=== PATIENT | male | born 1985 | race Caucasian/White ===

== ENCOUNTER → 2018-02-22 | Outpatient (CLI) | payer OTHER, BC | END | disposition home or self-care (01) | LOC: WOUND 13:16 | PROVIDERS: ATTEND Internal Medicine | DX: L89.153 Pressure ulcer of sacral region, stage 3 (principal); L89.43 Pressure ulcer of contiguous site of back, buttock and hip, stage 3; L89.320 Pressure ulcer of left buttock, unstageable; I10 Essential (primary) hypertension; E78.5 Hyperlipidemia, unspecified; G82.21 Paraplegia, complete | CPT/HCPCS: 11042; 99205 ==

== ENCOUNTER → 2018-02-27 | Outpatient (CLI) | payer OTHER, BC | END | disposition home or self-care (01) | LOC: WOUND 09:14 | PROVIDERS: ATTEND Internal Medicine | DX: L89.323 Pressure ulcer of left buttock, stage 3 (principal); G82.21 Paraplegia, complete; E78.5 Hyperlipidemia, unspecified; I10 Essential (primary) hypertension | CPT/HCPCS: 97597 ==

== ENCOUNTER → 2018-03-10 | Outpatient (CLI) | payer OTHER, BC | END | disposition home or self-care (01) | LOC: WOUND 08:38 | PROVIDERS: ATTEND Family Medicine | DX: L89.323 Pressure ulcer of left buttock, stage 3 (principal); G82.21 Paraplegia, complete; E78.5 Hyperlipidemia, unspecified; I10 Essential (primary) hypertension | CPT/HCPCS: 99214 ==

== ENCOUNTER → 2018-03-13 | Outpatient (CLI) | payer OTHER, BC | END | disposition home or self-care (01) | LOC: WOUND 11:03 | PROVIDERS: ATTEND Internal Medicine | DX: L89.43 Pressure ulcer of contiguous site of back, buttock and hip, stage 3 (principal); G82.21 Paraplegia, complete; E78.5 Hyperlipidemia, unspecified; I10 Essential (primary) hypertension | CPT/HCPCS: 97605 ==

== ENCOUNTER → 2018-03-15 | Outpatient (CLI) | payer OTHER, BC | END | disposition home or self-care (01) | LOC: WOUND 11:04 | PROVIDERS: ATTEND Internal Medicine | DX: L89.43 Pressure ulcer of contiguous site of back, buttock and hip, stage 3 (principal); G82.21 Paraplegia, complete; E78.5 Hyperlipidemia, unspecified; I10 Essential (primary) hypertension | CPT/HCPCS: 97605 ==

== ENCOUNTER → 2018-03-17 | Outpatient (CLI) | payer OTHER, BC | END | disposition home or self-care (01) | LOC: WOUND 10:00 | PROVIDERS: ATTEND Family Medicine | DX: L89.43 Pressure ulcer of contiguous site of back, buttock and hip, stage 3 (principal); I10 Essential (primary) hypertension; G82.21 Paraplegia, complete; E78.5 Hyperlipidemia, unspecified | CPT/HCPCS: 11043 ==

== ENCOUNTER → 2018-03-20 | Outpatient (CLI) | payer OTHER, BC | END | disposition home or self-care (01) | LOC: WOUND 09:43 | PROVIDERS: ATTEND Internal Medicine | DX: L89.153 Pressure ulcer of sacral region, stage 3 (principal); I10 Essential (primary) hypertension; G82.21 Paraplegia, complete; E78.5 Hyperlipidemia, unspecified | CPT/HCPCS: 97605 ==

== ENCOUNTER → 2018-03-22 | Outpatient (CLI) | payer OTHER, BC | END | disposition home or self-care (01) | LOC: WOUND 10:56 | PROVIDERS: ATTEND Internal Medicine Cardiovascular Disease | DX: L89.43 Pressure ulcer of contiguous site of back, buttock and hip, stage 3 (principal); G82.21 Paraplegia, complete; I10 Essential (primary) hypertension; E78.5 Hyperlipidemia, unspecified | CPT/HCPCS: 97605 ==

== ENCOUNTER → 2018-03-24 | Outpatient (CLI) | payer OTHER, BC | END | disposition home or self-care (01) | LOC: WOUND 09:30 | PROVIDERS: ATTEND Family Medicine | DX: L89.43 Pressure ulcer of contiguous site of back, buttock and hip, stage 3 (principal); G82.21 Paraplegia, complete; E78.5 Hyperlipidemia, unspecified; I10 Essential (primary) hypertension | CPT/HCPCS: 11043 ==

== ENCOUNTER → 2018-03-27 | Outpatient (CLI) | payer OTHER, BC | END | disposition home or self-care (01) | LOC: WOUND 08:31 | PROVIDERS: ATTEND Internal Medicine Cardiovascular Disease | DX: L89.43 Pressure ulcer of contiguous site of back, buttock and hip, stage 3 (principal); I10 Essential (primary) hypertension; G82.21 Paraplegia, complete; E78.5 Hyperlipidemia, unspecified | CPT/HCPCS: 97605 ==

== ENCOUNTER → 2018-03-29 | Outpatient (CLI) | payer OTHER, BC | END | disposition home or self-care (01) | LOC: WOUND 08:30 | PROVIDERS: ATTEND Internal Medicine | DX: L89.43 Pressure ulcer of contiguous site of back, buttock and hip, stage 3 (principal); G82.21 Paraplegia, complete; I10 Essential (primary) hypertension; E78.5 Hyperlipidemia, unspecified | CPT/HCPCS: 97605 ==

== ENCOUNTER → 2018-03-31 | Outpatient (CLI) | payer OTHER, BC | END | disposition home or self-care (01) | LOC: WOUND 10:36 | PROVIDERS: ATTEND Family Medicine | DX: L89.43 Pressure ulcer of contiguous site of back, buttock and hip, stage 3 (principal); G82.21 Paraplegia, complete; I10 Essential (primary) hypertension; E78.5 Hyperlipidemia, unspecified | CPT/HCPCS: 97605 ==

== ENCOUNTER → 2018-04-03 | Outpatient (CLI) | payer OTHER, BC | END | disposition home or self-care (01) | LOC: WOUND 08:32 | PROVIDERS: ATTEND Internal Medicine | DX: L89.43 Pressure ulcer of contiguous site of back, buttock and hip, stage 3 (principal); G82.21 Paraplegia, complete; E78.5 Hyperlipidemia, unspecified; I10 Essential (primary) hypertension | CPT/HCPCS: 97605 ==

== ENCOUNTER → 2018-04-05 | Outpatient (CLI) | payer OTHER, BC | END | disposition home or self-care (01) | LOC: WOUND 11:04 | PROVIDERS: ATTEND Internal Medicine | DX: L89.43 Pressure ulcer of contiguous site of back, buttock and hip, stage 3 (principal); G82.21 Paraplegia, complete; E78.5 Hyperlipidemia, unspecified; I10 Essential (primary) hypertension | CPT/HCPCS: 97597 ==

== ENCOUNTER → 2018-04-10 | Outpatient (CLI) | payer OTHER, BC | END | disposition home or self-care (01) | LOC: WOUND 08:10 | PROVIDERS: ATTEND Internal Medicine | DX: L89.43 Pressure ulcer of contiguous site of back, buttock and hip, stage 3 (principal); G82.21 Paraplegia, complete; E78.5 Hyperlipidemia, unspecified; I10 Essential (primary) hypertension | CPT/HCPCS: 97605 ==

== ENCOUNTER → 2018-04-12 | Outpatient (CLI) | payer OTHER, BC | END | disposition home or self-care (01) | LOC: WOUND 11:04 | PROVIDERS: ATTEND Internal Medicine | DX: L89.43 Pressure ulcer of contiguous site of back, buttock and hip, stage 3 (principal); I10 Essential (primary) hypertension; G82.21 Paraplegia, complete; E78.5 Hyperlipidemia, unspecified | CPT/HCPCS: 97597 ==

== ENCOUNTER → 2018-04-14 | Outpatient (CLI) | payer OTHER, BC ==
[~2018-04-14] MED LIST: ACET325T14 PO; LINE600T33 PO; METR500T PO
== END | disposition home or self-care (01) ==
LOC: WOUND 10:08
PROVIDERS: ATTEND Internal Medicine Cardiovascular Disease
DX: L89.43 Pressure ulcer of contiguous site of back, buttock and hip, stage 3 (principal); G82.21 Paraplegia, complete; E78.5 Hyperlipidemia, unspecified; I10 Essential (primary) hypertension
CPT/HCPCS: 97605

== ENCOUNTER → 2018-04-17 | Outpatient (CLI) | payer OTHER, BC | END | disposition home or self-care (01) | LOC: WOUND 13:18 | PROVIDERS: ATTEND Internal Medicine | DX: L89.43 Pressure ulcer of contiguous site of back, buttock and hip, stage 3 (principal); I10 Essential (primary) hypertension; G82.21 Paraplegia, complete; E78.5 Hyperlipidemia, unspecified | CPT/HCPCS: 97597 ==

== ENCOUNTER → 2018-04-19 | Outpatient (CLI) | payer OTHER, BC | END | disposition home or self-care (01) | LOC: WOUND 14:28 | PROVIDERS: ATTEND Internal Medicine Cardiovascular Disease | DX: L89.223 Pressure ulcer of left hip, stage 3 (principal); G82.21 Paraplegia, complete; E78.5 Hyperlipidemia, unspecified; I10 Essential (primary) hypertension | CPT/HCPCS: 97605 ==

== ENCOUNTER → 2018-04-24 | Outpatient (CLI) | payer OTHER, BC | END | disposition home or self-care (01) | LOC: WOUND 09:33 | PROVIDERS: ATTEND Internal Medicine Cardiovascular Disease | DX: L89.223 Pressure ulcer of left hip, stage 3 (principal); G82.21 Paraplegia, complete; E78.5 Hyperlipidemia, unspecified; I10 Essential (primary) hypertension | CPT/HCPCS: 97605 ==

== ENCOUNTER 2018-04-26 10:11 | Inpatient (IN) | payer OTHER, BC ==
[~2018-04-26] VITALS: Ht 185.4 cm; Wt 78.1 kg
[2018-04-26] MEDS ORDERED: SODIUM CHLORIDE FLUSH 10ML SYR IVF ONE (11:00)
[2018-04-26 11:09] LABS: BASOPHILS # (AUTO) 0.06 x10^3/uL (0-0.1); BASOPHILS % (AUTO) 1 % (0-1); EOSINOPHILS # (AUTO) 0.12 x10^3/uL (0-0.4); EOSINOPHILS % (AUTO) 1 % (1-7); LYMPHOCYTES # (AUTO) 2.42 x10^3/uL (1-3.4); LYMPHOCYTES % (AUTO) 22 % (22-44); MD NO; MEAN CORPUSCULAR HEMOGLOBIN 29.5 pg (27.5-34.5); MEAN CORPUSCULAR HGB CONC 33.5 g/dL (33.2-36.2); MEAN PLATELET VOLUME 7.8 fL (7.4-10.4); MONOCYTES # (AUTO) 1.15 x10^3/uL (0.2-0.8); MONOCYTES % (AUTO) 11 % (2-9); NEUTROPHILS # (AUTO) 7.25 x10^3/uL (1.8-6.8); NEUTROPHILS % (AUTO) 66 % (42-75); PLATELET COUNT 435 x10^3/uL (130-400); RED BLOOD COUNT 4.99 x10^6/uL (4.38-5.82); RED CELL DISTRIBUTION WIDTH 12.8 % (9.4-14.8)
[2018-04-26 11:10] LABS: HCT (SEDRATE) 43.7 % (39.2-51.8)
[2018-04-26 11:15] LABS: ALBUMIN 3.1 g/dL (3.4-5.0); ANION GAP 6 mmol/L (5-15); CHLORIDE 105 mmol/L (98-107); CREATININE 0.66 mg/dL (0.7-1.3)
[2018-04-26] MEDS ORDERED: OMNIPAQUE 350 MG/ML, 100ML BOTTLE ONE (11:49)
[2018-04-26] MEDS ORDERED: VANCOMYCIN PER PHARMACY MC PRN ×2 (13:00→14:30)
[2018-04-26] MEDS ORDERED: VANCOMYCIN 1,600 MG in SODIUM CHLORIDE 0.9% 250 ML IV ONE (13:30)
[2018-04-26] MEDS: SODIUM CHLORIDE 0.9% 1,000 ML IV SCH (14:17)
[2018-04-26] MEDS ORDERED: ONDANSETRON 2MG/ML, 2ML IVPush PRN (14:30)
[2018-04-26] MEDS ORDERED: morphine SULFATE 10 MG/ML, 1ML IVPush PRN (14:30)
[2018-04-26] MEDS ORDERED: ENALAPRILAT 1.25 MG/ML, 2ML IVPush PRN (14:30)
[2018-04-26] MEDS ORDERED: ACETAMINOPHEN 325 MG TABLET PO PRN (14:30)
[2018-04-26 14:50] LABS: INTERNATIONAL NORMALIZED RATIO 0.99 (0.93-1.1); PROTHROMBIN TIME 10.2 Seconds (9.6-11.5)
[2018-04-26] MEDS ORDERED: PHARMACOKINETIC MONITORING MC PRN (15:00)
[2018-04-26 15:08] VITALS: BP 122/78
[2018-04-26] MEDS: PIPERACILLIN/TAZO/PMX 3.375GM 50 ML IV SCH ×2 (17:00→23:00)
[2018-04-26 19:00] VITALS: BP 114/76
[2018-04-27] MEDS: VANCOMYCIN 1,600 MG in SODIUM CHLORIDE 0.9% 250 ML IV SCH ×2 (02:09→17:00)
[2018-04-27] MEDS: SODIUM CHLORIDE 0.9% 1,000 ML IV SCH ×2 (02:09→11:25)
[2018-04-27 02:24] VITALS: BP 111/64
[2018-04-27 05:21] LABS: BASOPHILS # (AUTO) 0.06 x10^3/uL (0-0.1); BASOPHILS % (AUTO) 1 % (0-1); EOSINOPHILS # (AUTO) 0.18 x10^3/uL (0-0.4); EOSINOPHILS % (AUTO) 2 % (1-7); LYMPHOCYTES # (AUTO) 2.65 x10^3/uL (1-3.4); LYMPHOCYTES % (AUTO) 26 % (22-44); MD NO; MEAN CORPUSCULAR HEMOGLOBIN 29.6 pg (27.5-34.5); MEAN CORPUSCULAR HGB CONC 33.6 g/dL (33.2-36.2); MEAN CORPUSCULAR VOLUME 88.1 fL (81-97); MEAN PLATELET VOLUME 7.9 fL (7.4-10.4); MONOCYTES # (AUTO) 1.19 x10^3/uL (0.2-0.8); MONOCYTES % (AUTO) 12 % (2-9); NEUTROPHILS # (AUTO) 6.17 x10^3/uL (1.8-6.8); NEUTROPHILS % (AUTO) 60 % (42-75); PLATELET COUNT 363 x10^3/uL (130-400); RED BLOOD COUNT 4.34 x10^6/uL (4.38-5.82); RED CELL DISTRIBUTION WIDTH 13.1 % (9.4-14.8)
[2018-04-27 05:30] LABS: CHLORIDE 108 mmol/L (98-107)
[2018-04-27 05:38] LABS: ALANINE AMINOTRANSFERASE 40 U/L (12-78); ALBUMIN 2.4 g/dL (3.4-5.0); ALKALINE PHOSPHATASE 85 U/L (45-117); ANION GAP 7 mmol/L (5-15); BILIRUBIN,TOTAL 0.7 mg/dL (0.2-1.0); CALCIUM 8.5 mg/dL (8.5-10.1); CREATININE 0.71 mg/dL (0.7-1.3); TOTAL PROTEIN 6.3 g/dL (6.4-8.2)
[2018-04-27 07:49] VITALS: BP 107/68
[2018-04-27] MEDS: PIPERACILLIN/TAZO/PMX 3.375GM 50 ML IV SCH ×3 (07:50→23:54)
[2018-04-27] MEDS ORDERED: MIDAZOLAM 1 MG/ML, 2ML ONE (13:29)
[2018-04-27] MEDS ORDERED: FENTANYL PF 100 MCG/2ML ONE (13:29)
[2018-04-27] MEDS ORDERED: PROPOFOL 10 MG/ML, 20ML ONE ×2 (13:35)
[2018-04-27] MEDS ORDERED: ROCURONIUM 10MG/ML,5ML ONE (13:35)
[2018-04-27] MEDS ORDERED: SUCCINYLCHOLINE 20 MG/ML, 10ML ONE (13:47)
[2018-04-27] MEDS ORDERED: LIDOCAINE 1%-EPI 1:100K, 30ML INFIL ONE (14:24)
[2018-04-27] MEDS ORDERED: BACITRACIN 50,000 UNIT IM ONE (14:25)
[2018-04-27] MEDS ORDERED: ONDANSETRON 2MG/ML, 2ML ONE (14:32)
[2018-04-27] MEDS ORDERED: HYDROmorphone 1 MG/ML, 1ML IV PRN (15:30)
[2018-04-27] MEDS ORDERED: OXYcodone 5 MG/5 ML ORAL.SOL UDC PO PRN (15:30)
[2018-04-27] MEDS ORDERED: LABETALOL 5MG/ML, 20ML IV PRN (15:30)
[2018-04-27] MEDS ORDERED: MIDAZOLAM 1 MG/ML, 2ML IV PRN (15:30)
[2018-04-27] MEDS ORDERED: SCOPOLAMINE PATCH, 1.5MG PATCH.TD72 TD PRN (15:30)
[2018-04-27] MEDS ORDERED: MEPERIDINE/PF 25MG/0.5ML IVPush PRN (15:30)
[2018-04-27] MEDS ORDERED: FENTANYL PF 100 MCG/2ML IV PRN (15:30)
[2018-04-27] MEDS ORDERED: ALBUTEROL SULFATE 2.5 MG/3 ML NPPB PRN (15:30)
[2018-04-27] MEDS ORDERED: DIPHENHYDRAMINE 50 MG/ML, 1ML IVPush PRN (15:30)
[2018-04-27 16:00] VITALS: BP 128/86
[2018-04-27 19:43] VITALS: BP 127/87
[2018-04-27] MEDS: HYDROcodone/APAP 5/325 TABLET PO PRN (23:55)
[2018-04-28 00:09] VITALS: BP 105/70
[2018-04-28] MEDS: HYDROcodone/APAP 5/325 TABLET PO PRN ×4 (04:27→22:02)
[2018-04-28] MEDS: VANCOMYCIN 1,600 MG in SODIUM CHLORIDE 0.9% 250 ML IV SCH ×2 (04:27→17:43)
[2018-04-28 05:19] LABS: MEAN CORPUSCULAR HEMOGLOBIN 29.4 pg (27.5-34.5); MEAN CORPUSCULAR HGB CONC 33.3 g/dL (33.2-36.2); MEAN CORPUSCULAR VOLUME 88.2 fL (81-97); MEAN PLATELET VOLUME 7.9 fL (7.4-10.4); PLATELET COUNT 389 x10^3/uL (130-400); RED BLOOD COUNT 4.15 x10^6/uL (4.38-5.82); RED CELL DISTRIBUTION WIDTH 12.9 % (9.4-14.8)
[2018-04-28 05:44] LABS: BASOPHILS # (AUTO) 0.06 x10^3/uL (0-0.1); BASOPHILS % (AUTO) 1 % (0-1); EOSINOPHILS # (AUTO) 0.27 x10^3/uL (0-0.4); EOSINOPHILS % (AUTO) 2 % (1-7); LYMPHOCYTES # (AUTO) 3.28 x10^3/uL (1-3.4); LYMPHOCYTES % (AUTO) 27 % (22-44); MD SCAN; MONOCYTES # (AUTO) 1.48 x10^3/uL (0.2-0.8); MONOCYTES % (AUTO) 12 % (2-9); NEUTROPHILS # (AUTO) 7.01 x10^3/uL (1.8-6.8); NEUTROPHILS % (AUTO) 58 % (42-75)
[2018-04-28] MEDS: PIPERACILLIN/TAZO/PMX 3.375GM 50 ML IV SCH (06:30)
[2018-04-28 07:58] VITALS: BP 105/65
[2018-04-28 12:31] VITALS: BP 116/87
[2018-04-28 19:27] VITALS: BP 116/85
[2018-04-29 01:20] VITALS: BP 110/67
[2018-04-29] MEDS: VANCOMYCIN 1,600 MG in SODIUM CHLORIDE 0.9% 250 ML IV SCH (05:07)
[2018-04-29 05:44] LABS: BASOPHILS # (AUTO) 0.05 x10^3/uL (0-0.1); BASOPHILS % (AUTO) 1 % (0-1); EOSINOPHILS # (AUTO) 0.38 x10^3/uL (0-0.4); EOSINOPHILS % (AUTO) 4 % (1-7); LYMPHOCYTES # (AUTO) 1.87 x10^3/uL (1-3.4); LYMPHOCYTES % (AUTO) 21 % (22-44); MD NO; MEAN CORPUSCULAR HEMOGLOBIN 28.7 pg (27.5-34.5); MEAN CORPUSCULAR HGB CONC 32.6 g/dL (33.2-36.2); MEAN PLATELET VOLUME 7.5 fL (7.4-10.4); MONOCYTES # (AUTO) 0.88 x10^3/uL (0.2-0.8); MONOCYTES % (AUTO) 10 % (2-9); NEUTROPHILS # (AUTO) 5.62 x10^3/uL (1.8-6.8); NEUTROPHILS % (AUTO) 64 % (42-75); PLATELET COUNT 434 x10^3/uL (130-400); RED BLOOD COUNT 4.39 x10^6/uL (4.38-5.82); RED CELL DISTRIBUTION WIDTH 12.9 % (9.4-14.8)
[2018-04-29 07:52] VITALS: BP 120/73
[2018-04-29] MEDS: HYDROcodone/APAP 5/325 TABLET PO PRN ×3 (08:07→22:46)
[2018-04-29 13:55] VITALS: BP 134/81
[2018-04-29 19:28] VITALS: BP 129/82
[2018-04-29] MEDS: DAPTOMYCIN 470 MG in SODIUM CHLORIDE 0.9% 100 ML IVPB SCH (22:46)
[2018-04-30 00:25] VITALS: BP 122/84
[2018-04-30 07:16] VITALS: BP 124/72
[2018-04-30 14:00] VITALS: BP 123/77
[2018-04-30 19:05] VITALS: BP 133/90
[2018-04-30] MEDS: DAPTOMYCIN 470 MG in SODIUM CHLORIDE 0.9% 100 ML IVPB SCH (22:44)
[2018-05-01 01:34] VITALS: BP 120/87
[2018-05-01 05:57] LABS: HCT (SEDRATE) 37.6 % (39.2-51.8)
[2018-05-01 05:58] LABS: BASOPHILS # (AUTO) 0.06 x10^3/uL (0-0.1); BASOPHILS % (AUTO) 1 % (0-1); EOSINOPHILS # (AUTO) 0.34 x10^3/uL (0-0.4); EOSINOPHILS % (AUTO) 5 % (1-7); LYMPHOCYTES # (AUTO) 2.29 x10^3/uL (1-3.4); LYMPHOCYTES % (AUTO) 30 % (22-44); MD NO; MEAN CORPUSCULAR HGB CONC 33.3 g/dL (33.2-36.2); MEAN CORPUSCULAR VOLUME 87.1 fL (81-97); MEAN PLATELET VOLUME 7.7 fL (7.4-10.4); MONOCYTES # (AUTO) 0.96 x10^3/uL (0.2-0.8); MONOCYTES % (AUTO) 12 % (2-9); NEUTROPHILS # (AUTO) 4.08 x10^3/uL (1.8-6.8); NEUTROPHILS % (AUTO) 53 % (42-75); PLATELET COUNT 481 x10^3/uL (130-400); RED BLOOD COUNT 4.36 x10^6/uL (4.38-5.82); RED CELL DISTRIBUTION WIDTH 12.8 % (9.4-14.8)
[2018-05-01 06:04] LABS: ALBUMIN 2.6 g/dL (3.4-5.0); ANION GAP 9 mmol/L (5-15); CALCIUM 8.9 mg/dL (8.5-10.1); CHLORIDE 107 mmol/L (98-107)
[2018-05-01 06:15] LABS: ALANINE AMINOTRANSFERASE 50 U/L (12-78); ALKALINE PHOSPHATASE 85 U/L (45-117); BILIRUBIN,TOTAL 0.4 mg/dL (0.2-1.0); CREATININE 0.95 mg/dL (0.7-1.3)
[2018-05-01 07:09] VITALS: BP 106/62
[2018-05-01] MEDS: metroNIDAZOLE 500 MG TABLET PO SCH ×2 (12:16→20:30)
[2018-05-01 12:27] VITALS: BP 132/93
[2018-05-01] MEDS: DAPTOMYCIN 470 MG in SODIUM CHLORIDE 0.9% 100 ML IVPB SCH (17:00)
[2018-05-01 21:20] VITALS: BP 120/79
[2018-05-02 03:45] VITALS: BP 119/81
[2018-05-02] MEDS: metroNIDAZOLE 500 MG TABLET PO SCH ×2 (04:30→13:27)
[2018-05-02] MEDS: HYDROcodone/APAP 5/325 TABLET PO PRN (04:48)
[2018-05-02 07:24] VITALS: BP 121/84
[2018-05-02 13:33] VITALS: BP 137/98
[2018-05-02] MEDS ORDERED: METR500T PO (14:14)
[2018-05-02] MEDS ORDERED: ACET325T14 PO (14:14)
[2018-05-02] MEDS ORDERED: LINE600T33 PO (14:14)
[2018-05-02] MEDS ORDERED: metroNIDAZOLE 500 MG TABLET PO SCH (14:30)
[2018-05-02] MEDS ORDERED: LINEZOLID 600 MG TABLET PO SCH (21:00)
== END 2018-05-02 17:12 | disposition home or self-care (01) | DRG 579 ==
LOC: ED 11:15 → EDIP 13:42 → 3NE 14:44
PROVIDERS: ADMIT Family Medicine; ATTEND Family Medicine
PROC: 0KBG0ZZ Excision of Left Trunk Muscle, Open Approach (ICD-10-PCS; 2018-04-27)
PROC: 02HV33Z Insertion of Infusion Device into Superior Vena Cava, Percutaneous Approach (ICD-10-PCS; principal; 2018-05-01)
PROC: B548ZZA Ultrasonography of Superior Vena Cava, Guidance (ICD-10-PCS; 2018-05-01)
PROC: B5181ZA Fluoroscopy of Superior Vena Cava using Low Osmolar Contrast, Guidance (ICD-10-PCS; 2018-05-01)
DX: L02.31 Cutaneous abscess of buttock (principal); L89.324 Pressure ulcer of left buttock, stage 4; E44.1 Mild protein-calorie malnutrition; G82.20 Paraplegia, unspecified; R79.89 Other specified abnormal findings of blood chemistry; X58.XXXS Exposure to other specified factors, sequela; B95.62 Methicillin resistant Staphylococcus aureus infection as the cause of diseases classified elsewhere; D64.9 Anemia, unspecified; D72.829 Elevated white blood cell count, unspecified; Z82.49 Family history of ischemic heart disease and other diseases of the circulatory system; Z99.3 Dependence on wheelchair; Z88.1 Allergy status to other antibiotic agents; S24.104S Unspecified injury at T11-T12 level of thoracic spinal cord, sequela
CPT/HCPCS: 36415; 36569; 72193; 76937; 77001; 80048; 80053; 82040; 82550; 85025; 85610; 85651; 85730; 86140; 87040; 87070; 87075; 87077; 87102; 87147; 87186; 87205; 96374; 99285; G0378; J0878; J2250; J2405; J2543; J2704; J3010; J3370; J3490; Q9967; C1751; J0330; J7030; J7050

== ENCOUNTER → 2018-04-26 | Outpatient (CLI) | payer OTHER, BC | END | disposition home or self-care (01) | LOC: WOUND 09:22 | PROVIDERS: ATTEND Internal Medicine Cardiovascular Disease | DX: L89.43 Pressure ulcer of contiguous site of back, buttock and hip, stage 3 (principal); G82.21 Paraplegia, complete; E78.5 Hyperlipidemia, unspecified; I10 Essential (primary) hypertension | CPT/HCPCS: 99214 ==

== ENCOUNTER → 2018-05-03 | Outpatient (CLI) | payer OTHER, BC | END | disposition home or self-care (01) | LOC: WOUND 10:30 | PROVIDERS: ATTEND Internal Medicine Cardiovascular Disease | DX: L89.43 Pressure ulcer of contiguous site of back, buttock and hip, stage 3 (principal); I10 Essential (primary) hypertension; G82.21 Paraplegia, complete; E78.5 Hyperlipidemia, unspecified; J45.909 Unspecified asthma, uncomplicated | CPT/HCPCS: 97605 ==

== ENCOUNTER → 2018-05-05 | Outpatient (CLI) | payer OTHER, BC | END | disposition home or self-care (01) | LOC: WOUND 10:18 | PROVIDERS: ATTEND Family Medicine | DX: L89.43 Pressure ulcer of contiguous site of back, buttock and hip, stage 3 (principal); I10 Essential (primary) hypertension; G82.21 Paraplegia, complete; E78.5 Hyperlipidemia, unspecified; J45.909 Unspecified asthma, uncomplicated | CPT/HCPCS: 97605 ==

== ENCOUNTER → 2018-05-08 | Outpatient (CLI) | payer OTHER, BC | END | disposition home or self-care (01) | LOC: WOUND 11:00 | PROVIDERS: ATTEND Internal Medicine | DX: L89.43 Pressure ulcer of contiguous site of back, buttock and hip, stage 3 (principal); I10 Essential (primary) hypertension; G82.21 Paraplegia, complete; E78.5 Hyperlipidemia, unspecified; J45.909 Unspecified asthma, uncomplicated | CPT/HCPCS: 97597 ==

== ENCOUNTER → 2018-05-10 | Outpatient (CLI) | payer OTHER, BC | END | disposition home or self-care (01) | LOC: WOUND 10:06 | PROVIDERS: ATTEND Internal Medicine | DX: L89.43 Pressure ulcer of contiguous site of back, buttock and hip, stage 3 (principal); I10 Essential (primary) hypertension; G82.21 Paraplegia, complete; E78.5 Hyperlipidemia, unspecified; J45.909 Unspecified asthma, uncomplicated | CPT/HCPCS: 97605 ==

== ENCOUNTER → 2018-05-12 | Outpatient (CLI) | payer OTHER, BC | END | disposition home or self-care (01) | LOC: WOUND 10:44 | PROVIDERS: ATTEND Family Medicine | DX: L89.43 Pressure ulcer of contiguous site of back, buttock and hip, stage 3 (principal); G82.21 Paraplegia, complete; E78.5 Hyperlipidemia, unspecified; I10 Essential (primary) hypertension; J45.909 Unspecified asthma, uncomplicated | CPT/HCPCS: 97605 ==

== ENCOUNTER → 2018-05-15 | Outpatient (CLI) | payer OTHER, BC | END | disposition home or self-care (01) | LOC: WOUND 13:42 | PROVIDERS: ATTEND Internal Medicine | DX: L89.43 Pressure ulcer of contiguous site of back, buttock and hip, stage 3 (principal); I10 Essential (primary) hypertension; G82.21 Paraplegia, complete; E78.5 Hyperlipidemia, unspecified; J45.909 Unspecified asthma, uncomplicated | CPT/HCPCS: 97605 ==

== ENCOUNTER → 2018-05-17 | Outpatient (CLI) | payer OTHER, BC | END | disposition home or self-care (01) | LOC: WOUND 08:19 | PROVIDERS: ATTEND Internal Medicine | DX: L89.43 Pressure ulcer of contiguous site of back, buttock and hip, stage 3 (principal); G82.21 Paraplegia, complete; I10 Essential (primary) hypertension; E78.5 Hyperlipidemia, unspecified; J45.909 Unspecified asthma, uncomplicated | CPT/HCPCS: 97605 ==

== ENCOUNTER → 2018-05-19 | Outpatient (CLI) | payer OTHER, BC | END | disposition home or self-care (01) | LOC: WOUND 09:48 | PROVIDERS: ATTEND Family Medicine | DX: L89.43 Pressure ulcer of contiguous site of back, buttock and hip, stage 3 (principal); L98.491 Non-pressure chronic ulcer of skin of other sites limited to breakdown of skin; G82.21 Paraplegia, complete; I10 Essential (primary) hypertension; E78.5 Hyperlipidemia, unspecified; J45.909 Unspecified asthma, uncomplicated | CPT/HCPCS: 97605 ==

== ENCOUNTER → 2018-05-22 | Outpatient (CLI) | payer OTHER, BC | END | disposition home or self-care (01) | LOC: WOUND 10:12 | PROVIDERS: ATTEND Internal Medicine | DX: L89.43 Pressure ulcer of contiguous site of back, buttock and hip, stage 3 (principal); G82.21 Paraplegia, complete; I10 Essential (primary) hypertension; E78.5 Hyperlipidemia, unspecified; J45.909 Unspecified asthma, uncomplicated | CPT/HCPCS: 97605 ==

== ENCOUNTER 2018-05-24 11:23 | Outpatient (CLI) | payer OTHER, BC | END 2018-06-05 13:36 | disposition home or self-care (01) | LOC: WOUND 11:23 | PROVIDERS: ATTEND Internal Medicine | DX: L89.43 Pressure ulcer of contiguous site of back, buttock and hip, stage 3 (principal); G82.21 Paraplegia, complete; I10 Essential (primary) hypertension; E78.5 Hyperlipidemia, unspecified; J45.909 Unspecified asthma, uncomplicated | CPT/HCPCS: 99213 ==

== ENCOUNTER 2018-05-29 11:15 | Outpatient (CLI) | payer OTHER, BC | END 2018-06-05 12:54 | disposition home or self-care (01) | LOC: WOUND 11:15 | PROVIDERS: ATTEND Internal Medicine | DX: L89.43 Pressure ulcer of contiguous site of back, buttock and hip, stage 3 (principal); G82.21 Paraplegia, complete; I10 Essential (primary) hypertension; E78.5 Hyperlipidemia, unspecified; J45.909 Unspecified asthma, uncomplicated | CPT/HCPCS: 97605 ==

== ENCOUNTER 2018-05-31 08:56 | Outpatient (CLI) | payer OTHER, BC | END 2018-06-07 10:28 | disposition home or self-care (01) | LOC: WOUND 08:56 | PROVIDERS: ATTEND Internal Medicine | DX: L89.43 Pressure ulcer of contiguous site of back, buttock and hip, stage 3 (principal); I10 Essential (primary) hypertension; G82.21 Paraplegia, complete; E78.5 Hyperlipidemia, unspecified; J45.909 Unspecified asthma, uncomplicated | CPT/HCPCS: 97605 ==

== ENCOUNTER → 2018-06-02 | Outpatient (CLI) | payer OTHER, BC | END | disposition home or self-care (01) | LOC: WOUND 13:59 | PROVIDERS: ATTEND Family Medicine | DX: L89.43 Pressure ulcer of contiguous site of back, buttock and hip, stage 3 (principal); G82.21 Paraplegia, complete; I10 Essential (primary) hypertension; E78.5 Hyperlipidemia, unspecified; J45.909 Unspecified asthma, uncomplicated; Z88.1 Allergy status to other antibiotic agents | CPT/HCPCS: 97605 ==

== ENCOUNTER → 2018-06-05 | Outpatient (CLI) | payer OTHER, BC | END | disposition home or self-care (01) | LOC: WOUND 09:26 | PROVIDERS: ATTEND Internal Medicine | DX: L89.43 Pressure ulcer of contiguous site of back, buttock and hip, stage 3 (principal); I10 Essential (primary) hypertension; G82.21 Paraplegia, complete; E78.5 Hyperlipidemia, unspecified; J45.909 Unspecified asthma, uncomplicated | CPT/HCPCS: 97605 ==

== ENCOUNTER → 2018-06-07 | Outpatient (CLI) | payer OTHER, BC | END | disposition home or self-care (01) | LOC: WOUND 11:00 | PROVIDERS: ATTEND Internal Medicine | DX: L89.43 Pressure ulcer of contiguous site of back, buttock and hip, stage 3 (principal); I10 Essential (primary) hypertension; G82.21 Paraplegia, complete; E78.5 Hyperlipidemia, unspecified; J45.909 Unspecified asthma, uncomplicated; Z88.1 Allergy status to other antibiotic agents | CPT/HCPCS: 97605 ==